=== PATIENT | female | born 1955 | race Caucasian/White ===

== ENCOUNTER 2019-09-06 15:04 | Emergency (ER) | payer BC, SELFPAY ==
--- NOTE | ~2019-09-06 | CT_ITS ---
EXAMINATION: CT abdomen pelvis w con DATE: 09/06/2019 18:04 INDICATION: Abdominal pain TECHNIQUE: Computed tomography (CT) of the abdomen and pelvis was performed with 100 cc Omnipaque 350 intravenous contrast. The dose-length product was 731.97 mGy-cm. Automated exposure control and iter ative reconstruction technique were employed. COMPARISON: None. FINDINGS: Heart size upper normal. No significant pleural or pericardial effusion. Bibasilar dependen t atelectasis. No significant vascular abnormality. No lymphadenopathy. Fatty infiltration of the liver. The spleen, adrenal glands and kidneys are unremarkable. There is pa ncreatic atrophy. There is a 1.3 cm hypodense mass of the pancreatic body. Gallbladder is present. Co lonic diverticulosis without evidence for diverticulitis. No abnormal pelvic masses or fluid collecti ons. There is a right hip arthroplasty creating streak artifact. Generalized demineralization. There are degenerative changes of the left hip. There is a burst fracture of T12 and T10, likely chronic. V ertebroplasty changes present in T10. IMPRESSION: 1. Hypodense 1.3 cm mass of the pancreatic body. The differential diagnosis includes pseudocyst, intr aductal papillary mucinous neoplasm (IPMN), mucinous cystic neoplasm (MCN), and the less common serou s cystadenoma and neuroendocrine tumor. 2: Hepatic steatosis. Reviewed, dictated and finalized at location A. IMPRESSION: 1. Hypodense 1.3 cm mass of the pancreatic body. The differential diagnosis inc ludes pseudocyst, intraductal papillary mucinous neoplasm (IPMN), mucinous cyst ic neoplasm (MCN), and the less common serous cystadenoma and neuroendocrine tu mor. 2: Hepatic steatosis.
[2019-09-06 15:10] VITALS: BP 175/85; PULSE 118; RESP 22; TEMP 37.2; O2SAT 100
[2019-09-06] MEDS: SODIUM CHLORIDE 0.9% IV 1,000 ML 999 ML IV CONT (15:40)
[2019-09-06] MEDS: KETOROLAC 30 MG/ML VIAL (*BKC) IV PUSH (15:41)
[2019-09-06] MEDS: METOCLOPRAMIDE HCL INJ 10 MG/2 ML VIAL IV PUSH (15:42)
[2019-09-06 15:47] LABS: Basophils Percent Auto 0.3 % (0.2-1.2); Eosinophils Percent Auto 0.2 % (0-4.4); Hematocrit 34.4 % (37.0-47.0); Hemoglobin 11.2 g/dL (12.0-15.0); Immature Granulocyte Absolute 0.39 K/mm3 (0.00-0.031); Immature Granulocyte Percent A 2.9 % (0-0.5); Lymphocytes Absolute Auto 1.16 K/mm3 (0.9-3.2); Lymphocytes Percent Auto 8.6 % (18.3-44.2); Mean Corpuscular HGB Conc 32.6 g/dl (32-36); Mean Corpuscular Hemoglobin 27.2 pg (26-34); Mean Corpuscular Volume 83.5 fl (80-100); Monocytes Percent Auto 7.1 % (2.6-8.5); Neutrophils Percent Auto 80.9 % (45.5-73.1); Nucleated Red Blood Cells Perc 0.3 % (0.0-0.2); Platelet Count Result 329 k/mm3 (150-375); Red Blood Count 4.12 M/mm3 (4.2-5.4); Red Cell Distribution Width 17.1 % (11.5-14.5); White Blood Count 13.6 K/mm3 (4.5-10.0)
[2019-09-06 15:59] LABS: Albumin Level 4.5 g/dL (3.5-5.1); Alkaline Phosphatase 138 U/L (38-126); Aspartate Amino Transferase 32 U/L (14-36); Bilirubin,Total 0.8 mg/dL (0.2-1.3); Blood Urea Nitrogen 21 mg/dL (7-17); Calcium 10.1 mg/dL (8.4-10.2); Carbon Dioxide 21 mmol/L (22-30); Chloride 99 mmol/L (98-107); Estimated CRCL calculation 58 ml/min; Estimated Glomerular Filt Rate > 60; Glucose 242 mg/dL (65-105); Lipase 44 U/L (23-300); Potassium 3.9 mmol/L (3.4-5.0); Sodium 135 mmol/L (137-145)
--- NOTE | 2019-09-06 16:10 | ED.GENADULT ---
HPI - General Adult General Chief complaint: Abdominal Pain Stated complaint: constipation, n/v Time Seen by Provider: 09/06/19 15:17 History of Present Illness HPI narrative: Patient is a 64 y/o female complaining of generalized abdominal pain for several weeks. She describes her pain as dull and rates it as 10/10. There is no pain radiation. There is no alleviating or aggravating factor. She was seen at [facility] yesterday and diagnosed with constipation. She was given Mag Citrate and she started to have some vomiting today. Her last BM was 4-5 days ago. She had recent vertebroplasty for T10 fracture. Related Data Home Medications Medication Instructions Recorded Confirmed glimepiride 20 mg 09/06/19 tizanidine 4 mg 09/06/19 tramadol 50 mg 09/06/19 Allergies Allergy/AdvReac Type Severity Reaction Status Date / Time metformin AdvReac Hives Verified 09/06/19 15:31 Review of Systems Constitutional: Constitutional: Denies chills, Denies fever(s), Denies headache(s) and Denies weakness Eyes: Eyes: Denies blurry vision ENT: Denies headache(s) and Denies neck pain Cardiovascular: Cardiovascular: Denies chest pain and Denies dyspnea Respiratory: Respiratory: Denies cough and Denies dyspnea Gastrointestinal: Gastrointestinal: Reports abdominal pain, Denies diarrhea, Reports nausea and Reports vomiting Genitourinary: Genitourinary: Denies hematuria and Denies dysuria Musculoskeletal: Musculoskeletal: Reports back pain and Denies neck pain Neurologic: Denies headache(s) and Denies weakness [facility] Social History Social History Gender identity (if verbalized by the patient): Female Exam Const: General: no acute distress and well developed Orientation/consciousness: oriented to person, oriented to place, oriented to time and patient oriented x3 HENMT: Head: normocephalic Ears: external ears normal General nose exam: Normal external nose present Eyes: General: appearance normal, both eyes and all related structures Conjunctivae: conjunctivae normal Neck: Neck: normal visual inspection and full ROM Chest: Chest palpation & inspection: normal inspection of the chest and no tenderness Resp: Effort & Inspection: normal respiratory effort Auscultation: clear to auscultation bilaterally Cardio: Rate: tachycardic Rhythm: regular rhythm GI: GI Palp: No abdominal tenderness and Yes Soft to palpation Skin: General skin exam: normal color and turgor normal Neuro: General: oriented to person, oriented to place, oriented to time and patient oriented x3 Cognition (Neuro): normal cognition Extrem: General: normal to inspection, full ROM and no pedal edema Psych: Appearance: grossly normal Mental Status: mental status grossly normal Affect: normal affect Course Reevaluation(s) Reevaluation #1: Informed patient about abnormality of pancreas seen on CT and the need for further evaluation with PCP. Date: 09/06/19 Time: 21:20 Vital Signs Vital signs: Vital Signs Temperature 37.2 C 09/06/19 15:10 Pulse Rate 118 H 09/06/19 15:10 Respiratory Rate 22 H 09/06/19 15:10 Blood Pressure 175/85 H 09/06/19 15:10 Pulse Oximetry 100 09/06/19 15:10 Temperature 37.7 C H 09/06/19 21:48 Pulse Rate 100 09/06/19 21:48 Respiratory Rate 18 09/06/19 21:48 Blood Pressure 148/75 H 09/06/19 21:48 Pulse Oximetry 98 09/06/19 21:48 Medical Decision Making Vital Signs Vital Signs: Vital Signs Temperature 37.2 C 09/06/19 15:10 Pulse Rate 118 H 09/06/19 15:10 Respiratory Rate 22 H 09/06/19 15:10 Blood Pressure 175/85 H 09/06/19 15:10 Pulse Oximetry 100 09/06/19 15:10 Temperature 37.7 C H 09/06/19 21:48 Pulse Rate 100 09/06/19 21:48 Respiratory Rate 18 09/06/19 21:48 Blood Pressure 148/75 H 09/06/19 21:48 Pulse Oximetry 98 09/06/19 21:48 Lab Data Result diagrams: 09/06/19 15:41 09/06/19
[2019-09-06 16:11] LABS: Alanine Aminotransferase 22 U/L (4-35)
[2019-09-06 17:28] LABS: Add Urine Microscopic? YES; Appearance Urine Clear (Clear); Bilirubin Urine Negative (Negative); Blood Urine 1+ (Negative); Color Urine Yellow (Yellow); Glucose Urine UA 1+ mg/dL (Negative); Ketones Urine Trace mg/dL (Negative); Leukocyte Esterase Ur 1+ LEU/UL (Negative); Mucus Urine Rare /lpf; Nitrate Urine Negative (Negative); Protein Urine 2+ mg/dL (Negative); Squamous Epithelial Cell Urine Many /hpf (Few)
[2019-09-06 17:33] LABS: Specific Grav Ur 1.032 (1.001-1.035)
[2019-09-06] MEDS: DICYCLOMINE HCL INJ 20 MG/2 ML VIAL IM (17:47)
[2019-09-06 20:02] VITALS: BP 129/63; PULSE 94; RESP 18; O2SAT 96
[2019-09-06 21:12] VITALS: BP 128/66; PULSE 97; RESP 16; O2SAT 98
[2019-09-06 21:48] VITALS: BP 148/75; PULSE 100; RESP 18; TEMP 37.7; O2SAT 98
== END 2019-09-06 21:50 | disposition home or self-care (01) ==
PROVIDERS: Emergency Provider Emergency Medicine; PCP Internal Medicine Geriatric Medicine
DX: K86.9 Disease of pancreas, unspecified (principal); K76.0 Fatty (change of) liver, not elsewhere classified; N39.0 Urinary tract infection, site not specified; R10.84 Generalized abdominal pain
CPT/HCPCS: 36415; 74177; 80053; 81001; 83690; 85025; 87086; 87088; 96361; 96372; 96374; 96375; 99284; J0500; J1885; J2765; J3010; J7030; Q9967